=== PATIENT | female | born 1945 | race Caucasian/White ===

== ENCOUNTER → 2017-08-02 | Outpatient (CLI) | payer OTHER | LOC: FIMAGING 14:29 | PROVIDERS: ATTEND Family Medicine | DX: Z12.31 Encounter for screening mammogram for malignant neoplasm of breast (principal); Z80.3 Family history of malignant neoplasm of breast ==

== ENCOUNTER 2017-11-01 14:03 | Emergency (ER) | payer OTHER ==
--- NOTE | 2017-11-01 14:19 | CPEKG ---
Heart Rate: 68 RR Interval: 882 P-R Interval: 188 QRSD Interval: 88 QT Interval: 392 QTC Interval: 417 P [place]: 58 QRS [place]: 7 T Wave [place]: 22 EKG Severity - NORMAL ECG - EKG Impression: SINUS RHYTHM Electronically Signed By: Qing Marinelli 02-Nov-2017 18:20:23
[2017-11-01 14:25] LABS: PLATELET COUNT 277 10^3/uL (150-400)
--- NOTE | 2017-11-01 14:27 | EDPHY ---
HPI/HX/ROS/PE/MDM Narrative: CHIEF COMPLAINT: Chest pain HPI: The patient is a 71 y/o female complaining of an episode of chest pain around midnight, 14 hours ago. Last night, around midnight, she began experiencing pain in her upper abdomen and sternum. The episode lasted about 45 minutes before resolving. She had not yet gone to sleep. During the incident she had associated "fuzziness" in her cognition. She denies any shortness of breath or other associated symptoms. She reports she has some soreness in her chest currently but is otherwise asymptomatic. She reports having similar episodes infrequently. Her most recent episode in our system occurred in 2016 and she was advised to have a stress testat that time. She is unsure whether she had a stress test or saw a cloth stretcher. REVIEW OF SYSTEMS: Aside from elements discussed in the HPI, a comprehensive 10-point review of systems was reviewed and is negative. PMH: Borderline hypercholesteremia SOCIAL HISTORY: Lives in [place], retired, PHYSICAL EXAM: General:Patient is alert, in no acute distress. ENT:Eyes are normal to inspection. ENT inspection normal. Neck: Normal inspection. Full range of motion. Respiratory:No respiratory distress. Breath sounds normal bilaterally. Cardiovascular: Regular rate and rhythm. Strong peripheral pulses. Normal cap refill. Abdomen:The abdomen is nontender to palpation. There are no peritoneal signs. There are normal bowel sounds. Back: Normal to inspection. No tenderness to palpation. Skin: Normal color. No rash. Warm and dry. Extremities: Normal appearance. Full range of motion. Neuro: Oriented x3. Normal motor function. Normal sensory function. ED Course: The patient presents with a 45 minute episode of chest pain 14 hours ago. She had associated "fuzziness" in cognition. She denies shortness of breath or any other associated symptoms. She currently has some soreness in her chest. Her exam is normal. Plan for chest X-ray, EKG, CBC, basic metabolic panel, and troponin. 3:00 PM- Her chest X-ray is normal. Her EKG is unchanged from her 2016 EKG. Her labs are unremarkable. I reassessed the patient and informed her of the results of her workup. I feel she is safe to be discharged with follow up with cardiology. She agrees to this course of action. MDM: This patient presents with atypical chest pain that has resolved more than 14 hours ago. We performed an extensive workup in the ED which is negative. Her HEART score is low and I do not believe admission or further testing is indicated - the patient agrees. Her abdomen is benign. I counseled her to follow-up with cardiology [facility] and have given her a referral. We discussed strict return precautions. - Data Points Imaging Results: Imaging Impressions Chest X-Ray 11/01/17 14:15 Impression: Stable chest. Laboratory Results: Laboratory Results 11/01/17 14:15 11/01/17 14:15 11/01/17 11/01/17 11/01/17 14:19 14:15 14:15 WBC 6.74 10^3/uL 10^3/uL (3.80-9.50) RBC 4.47 10^6/uL 10^6/uL (4.18-5.33) Hgb 13.0 g/dL g/dL (12.6-16.3) Hct 38.6 % % (38.0-47.0) MCV 86.4 fL fL (81.5-99.8) MCH 29.1 pg pg (27.9-34.1) MCHC 33.7 g/dL g/dL (32.4-36.7) RDW 14.3 % % (11.5-15.2) Plt Count 277 10^3/uL 10^3/uL (150-400) MPV 10.3 fL fL (8.7-11.7) Neut % (Auto) 64.3 % % (39.3-74.2) Lymph % (Auto) 27.0 % % (15.0-45.0) [place] % (Auto) 6.7 % % (4.5-13.0) Eos % (Auto) 1.5 % % (0.6-7.6) Baso % (Auto) 0.4 % % (0.3-1.7) Nucleat RBC Rel Count 0.0 % % (0.0-0.2) Absolute Neuts (auto) 4.33 10^3/uL 10^3/uL (1.70-6.50) Absolute Lymphs (auto) 1.82 10^3/uL 10^3/uL (1.00-3.00) Absolute Monos (auto) 0.45 10^3/uL 10^3/uL (0.30-0.80) Absolute Eos (auto) 0.10 10^3/uL 10^3/uL (0.03-0.40) Absolute Basos (auto) 0.03 10^3/uL 10^3/uL (0.02-0.10) Absolute Nucleated RBC 0.00 10^3/uL 10^3/uL (0-0.01) Immature Gran % 0.1 % % (0.0-1.1) Immature Gran # 0.01 10^3/uL 10^3/uL (0.00-0.10) Sodium 143 mEq/L mEq/L (135-145) Potassium 4.2 mEq/L mEq/L (3.3-5.0) Chloride 109 mEq/L mEq/L (97-110) Carbon Dioxide 22 mEq/l mEq/l (22-31) Anion Gap 12 mEq/L mEq/L (8-16) BUN 22 mg/dL mg/dL (7-23) Creatinine 0.7 mg/dL mg/dL (0.6-1.0) Estimated GFR > 60 Glucose 89 mg/dL mg/dL (70-100) Calcium 9.4 mg/dL mg/dL (8.5-10.4) POC Troponin I 0.00 ng/mL ng/mL (0.00-0.08) Point of Care Test Results: Chemistry 11/01/17 14:19 POC Troponin I 0.00 ng/mL ng/mL (0.00-0.08) General Time Seen by Provider: 11/01/17 14:13 Initial Vital Signs: Initial Vital Signs Temperature (C) 36.6 C 11/01/17 14:06 Heart Rate 78 11/01/17 14:06 Respiratory Rate 18 11/01/17 14:06 Blood Pressure 135/75 H 11/01/17 14:06 O2 Sat (%) 93 11/01/17 14:06 O2 Delivery Mode Room Air Allergies/Adverse Reactions: latex Allergy (Unknown, Verified 11/01/17 14:05) emycin Allergy (Mild, Uncoded 09/24/15 08:55) GI upset Home Medications: Medication Instructions Recorded NK [No Known Home Meds] 09/24/15 Departure - Departure Disposition: Home, Routine, Self-Care Clinical Impression: Chest pain Qualifiers: Chest pain type: other chest pain Qualified Code(s): R07.89 - Other chest pain Condition: Good Instructions: Chest Pain (ED) Additional Instructions: 1. Follow up with Dr. Mcgraw, cloth stretcher, or a cloth stretcher you have seen in the past regarding your visit today. 2. Return to the emergency department for return of chest pain, shortness of breath, or any other worsening of condition. Referrals: Lilliam Reese MD [Primary Care Provider] - As per Instructions Yoseph Mcgraw MD [Medical Doctor] - As per Instructions Report Scribed for: Vignesh Mcclelland Report Scribed by: Vivien Foy Date of Report: 11/01/17 Time of Report: 14:27 Physician Review and Approval Statement: Portions of this note were transcribed by an ED scribe. I personally performed the history, physical exam, and medical decision making; and confirm the accuracy of the information in the transcribed note.
[2017-11-01 15:31] VITALS: BP 114/74
== END 2017-11-01 15:30 | disposition home or self-care (01) ==
DX: R07.89 Other chest pain (principal)
CPT/HCPCS: 84484-PO